=== PATIENT | female | born 1945 | race African-American/Black ===

== ENCOUNTER 2019-01-25 23:00 | Inpatient (IN) | payer MEDICARE, BC ==
[~2019-01-25] VITALS: Ht 167.6 cm; Wt 57.2 kg
[2019-01-26] MEDS ORDERED: ACETAMINOPHEN 325 MG TABLET PO PRN (00:15)
[2019-01-26] MEDS ORDERED: MAGNESIUM HYDROXIDE 30 ML LIQUID UDC PO PRN (00:15)
[2019-01-26] MEDS ORDERED: MAG HYDROX/AL HYDROX/SIMETH 30 ML LIQUID UDC PO PRN (00:15)
[2019-01-26] MEDS ORDERED: LORAZEPAM 0.5 MG TABLET PO PRN (00:15)
[2019-01-26] MEDS ORDERED: OLAN5TAB3 PO (01:13)
[2019-01-26] MEDS ORDERED: DONE5TAB34 PO (01:13)
[2019-01-26] MEDS ORDERED: ZOLPIDEM 5 MG TABLET PO PRN (01:45)
[2019-01-26] MEDS ORDERED: CLONIDINE-TTS 1 PATCH TD SCH (02:00)
[2019-01-26 04:10] VITALS: BP 156/86
[2019-01-26 07:30] VITALS: BP 149/83
[2019-01-26] MEDS: CLONIDINE-TTS 1 PATCH TD SCH ×2 (11:00→14:59)
[2019-01-26] MEDS: ESCITALOPRAM OXALATE 10 MG TABLET PO SCH ×2 (11:30→14:58)
[2019-01-26] MEDS: OLANZAPINE 2.5 MG TABLET PO SCH ×3 (11:30→20:07)
[2019-01-26 16:00] VITALS: BP 146/74
[2019-01-26 20:15] VITALS: BP 132/68
[2019-01-27 07:30] VITALS: BP 138/70
[2019-01-27 07:32] LABS: ALANINE AMINOTRANSFERASE 14 U/L (14-59); ALKALINE PHOSPHATASE 64 U/L (50-136); ASPARTATE AMINOTRANSFERASE 11 U/L (15-37); CARBON DIOXIDE 30 mmol/L (21-32); CHLORIDE 109 mmol/L (98-107); CREATININE 0.7 mg/dL (0.6-1.3); GLUCOSE 82 mg/dL (74-106); MAGNESIUM 2.1 mg/dL (1.8-2.4); POTASSIUM 3.7 mmol/L (3.5-5.1); TOTAL PROTEIN, SERUM 5.9 g/dL (6.4-8.2); UREA NITROGEN, BLOOD 17 mg/dL (7-18)
[2019-01-27 08:07] LABS: BASOPHILS % (AUTO) 0.4 % (0.0-2.0); EOSINOPHILS # (AUTO) 0.1 K/uL (0.0-0.7); EOSINOPHILS % (AUTO) 1.5 % (0.0-7.0); HEMATOCRIT 33.8 % (31.2-41.9); HEMOGLOBIN 11.5 g/dL (10.9-14.3); LYMPHOCYTES # (AUTO) 1.1 K/uL (20.0-40.0); LYMPHOCYTES % (AUTO) 24.2 % (20.5-51.5); MEAN CORPUSCULAR HEMOGLOBIN 28.9 uug (24.7-32.8); MEAN CORPUSCULAR HGB CONC 34 g/dL (32.3-35.6); MEAN CORPUSCULAR VOLUME 85.1 fL (75.5-95.3); MONOCYTES # (AUTO) 0.4 K/uL (2.0-10.0); MONOCYTES % (AUTO) 8.8 % (0.0-11.0); NEUTROPHILS # (AUTO) 2.9 K/uL (1.8-8.9); NEUTROPHILS % (AUTO) 65.1 % (38.5-71.5); PLATELET COUNT (AUTO) 199 K/uL (179-408); RED BLOOD CELL COUNT(AUTO) 3.97 MIL/uL (3.63-4.92); WHITE BLOOD COUNT (AUTO) 4.4 K/uL (3.8-11.8)
[2019-01-27] MEDS: ESCITALOPRAM OXALATE 10 MG TABLET PO SCH ×2 (08:34→09:57)
[2019-01-27] MEDS: OLANZAPINE 2.5 MG TABLET PO SCH ×3 (08:34→20:03)
[2019-01-27] MEDS: DONEPEZIL 5 MG TABLET PO SCH ×2 (08:34→09:57)
[2019-01-27 16:00] VITALS: BP 127/82
[2019-01-27 19:43] VITALS: BP 122/74
[2019-01-28] MEDS: ESCITALOPRAM OXALATE 10 MG TABLET PO SCH (10:03)
[2019-01-28] MEDS: OLANZAPINE 2.5 MG TABLET PO SCH ×2 (10:03→20:10)
[2019-01-28] MEDS: DONEPEZIL 5 MG TABLET PO SCH (10:03)
[2019-01-28 16:04] VITALS: BP 108/60
[2019-01-28 19:43] VITALS: BP 91/55
[2019-01-29 07:30] VITALS: BP 143/75
[2019-01-29] MEDS: OLANZAPINE 2.5 MG TABLET PO SCH ×2 (08:23→20:03)
[2019-01-29] MEDS: ESCITALOPRAM OXALATE 10 MG TABLET PO SCH (08:23)
[2019-01-29] MEDS: DONEPEZIL 5 MG TABLET PO SCH (08:23)
[2019-01-29 15:07] VITALS: BP 97/50
[2019-01-29 20:03] VITALS: BP 140/74
[2019-01-30 07:30] VITALS: BP_SYST 124; BP_SYST 146; BP_DIAS 64; BP_DIAS 71
[2019-01-30] MEDS: OLANZAPINE 2.5 MG TABLET PO SCH ×2 (08:32→20:31)
[2019-01-30] MEDS: DONEPEZIL 5 MG TABLET PO SCH (08:32)
[2019-01-30] MEDS: ESCITALOPRAM OXALATE 10 MG TABLET PO SCH (08:32)
[2019-01-30 15:30] VITALS: BP 144/75
[2019-01-30 20:00] VITALS: BP 150/60
[2019-01-31 07:30] VITALS: BP 139/68
[2019-01-31] MEDS: ESCITALOPRAM OXALATE 10 MG TABLET PO SCH (08:34)
[2019-01-31] MEDS: OLANZAPINE 2.5 MG TABLET PO SCH ×2 (08:34→20:14)
[2019-01-31] MEDS: DONEPEZIL 5 MG TABLET PO SCH (08:36)
[2019-01-31 15:59] VITALS: BP 108/64
[2019-01-31 20:00] VITALS: BP 124/66
[2019-02-01 08:01] VITALS: BP 148/70
[2019-02-01] MEDS: DONEPEZIL 5 MG TABLET PO SCH (08:01)
[2019-02-01] MEDS: OLANZAPINE 2.5 MG TABLET PO SCH (08:01)
[2019-02-01] MEDS: ESCITALOPRAM OXALATE 10 MG TABLET PO SCH (08:01)
[2019-02-01 15:36] VITALS: BP 154/75
== END 2019-02-01 15:30 | disposition home or self-care (01) | DRG 885 ==
LOC: ER 23:00 → GPS 23:55
PROVIDERS: ADMIT Psychiatry & Neurology Psychiatry; ATTEND Nurse Practitioner Acute Care
DX: F29 Unspecified psychosis not due to a substance or known physiological condition (principal); F03.91 Unspecified dementia, unspecified severity, with behavioral disturbance; F32.9 Major depressive disorder, single episode, unspecified; I44.0 Atrioventricular block, first degree; I11.9 Hypertensive heart disease without heart failure
CPT/HCPCS: 36415; 71045; 83735; 84100; 85025; 86592; 93005; A4663